=== PATIENT | male | born 1960 | race African-American/Black ===

== ENCOUNTER 2021-07-31 19:28 | Emergency (ER) | payer SELFPAY ==
[~2021-07-31] VITALS: Ht 167.6 cm; Wt 62.6 kg
[2021-07-31 19:45] VITALS: BP 110/59
[2021-07-31] MEDS ORDERED: COLL226C TP (20:43)
[2021-07-31] MEDS ORDERED: HYDR30CR74 TP (20:43)
--- NOTE | 2021-07-31 20:43 | PHYS DOC ---
Adult General Chief Complaint Chief Complaint: SKIN RASH/ABSCESS HPI HPI Patient is a 61 year old male presenting to the emergency department for evaluation of a rash on his abdomen that has been present for 5 months. Patient is Swahili speaking only but his is present who speaks [place]ian and we re commended language line medical physics teacher but he prefers his to translate. Patient says that the rash is itchy and he feels it is getting progressively worse over the past 5 months but is not painful and he has had no fevers chills nausea vomiting or other systemic symptoms. He has not tried any oral medications or creams or anything else for the rash. Review of Systems Review of Systems Constitutional: Denies fever or chills [] GI: Denies abdominal pain, nausea, vomiting, bloody stools or diarrhea [] Musculoskeletal: Denies back pain or joint pain [] Integument: + rash Neurologic: Denies headache, focal weakness or sensory changes [] All other systems were reviewed and found to be within normal limits, except as documented in this note. Physical Exam Physical Exam Constitutional: Well developed, well nourished, no acute distress, non-toxic appearance. [] Cardiovascular:Heart rate regular rhythm, no murmur [] Lungs & Thorax: Bilateral breath sounds clear to auscultation [] Abdomen: Bowel sounds normal, soft, no tenderness, no masses, no pulsatile masses. [] Skin: Warm, dry. Dry scaly rash noted to the left mid to lower abdomen that crosses midline and does not extend towards the back. Rash does not extend into the scrotum but does appear that he shaves his pubic hair and there is some rash there as well. Extremities: No tenderness, no cyanosis, no clubbing, ROM intact, no edema. [] Neurologic: Alert and oriented X 3, normal motor function, normal sensory function, no focal deficits noted. [] EKG EKG [] Radiology/Procedures Radiology/Procedures [] Course & Med Decision Making Course & Med Decision Making For this rash that has been present for 5 months I suspect that is most likely eczema. I will start him on Eucerin cream in addition to a topical steroid. I told him to keep it as moist as possible and that he can take Benadryl for itching. Patient was told to follow with a primary care provider within 1 week for recheck to ensure it is improving and that he can come back to emergency department anytime with any new worsening symptoms. Patient and aware and agreeable with plan and verbalized understanding of the above instructions. Radha Disclaimer Loganon Disclaimer This electronic medical record was generated, in whole or in part, using a voice recognition dictation system. Departure Departure Impression: Primary Impression: Dermatitis Disposition: HOME / SELF CARE / HOMELESS Condition: STABLE Patient Instructions: Eczema Additional Instructions: Take 25mg of OTC benadryl for itching every 6 hours as needed. Put moisturizer such as Eucerin cream on your abdomen liberally and apply the topical steroid 2- 3 times daily as well. Follow with a primary care provider within 1 week to ensure improvement. Scripts Hydrocortisone (Hydrocortisone) 30 Gm Cream.appl 1 KATLYN TP TID for 7 Days, #30 GM 0 Refills 0.5% Prov: CAMILLE MORTON DO 07/31/21 Colloidal Oatmeal (Eucerin Eczema Relief) 226 Gm Cream..g. 1 KATLYN TP TID for 30 Days, #226 GM 0 Refills Prov: CAMILLE MORTON DO 07/31/21 CAMILLE MORTON DO July 31, 2021 20:43
== END 2021-07-31 21:00 | disposition home or self-care (01) ==
LOC: ER 19:28
DX: L30.9 Dermatitis, unspecified (principal)
CPT/HCPCS: 99282